=== PATIENT | female | born 1950 | race Two or more races ===

== ENCOUNTER 2018-03-11 11:01 | Outpatient (RCR) | payer MEDICARE, OTHER ==
[2018-03-11] MEDS ORDERED: SIMVASTATIN10 MG ORAL (13:11)
[2018-03-11] MEDS ORDERED: GLIPIZIDE5 MG ORAL (13:11)
[2018-03-11] MEDS ORDERED: ACARBOSE50 MG ORAL (13:11)
[2018-03-11] MEDS ORDERED: FOSAMAX70 MG ORAL (13:11)
[2018-03-11] MEDS ORDERED: JANUVIA25 MG ORAL (13:11)
== END 2018-03-21 | disposition home or self-care (01) ==
LOC: WCC 11:01
DX: E11.52 Type 2 diabetes mellitus with diabetic peripheral angiopathy with gangrene (principal); L97.519 Non-pressure chronic ulcer of other part of right foot with unspecified severity; E11.621 Type 2 diabetes mellitus with foot ulcer; L03.115 Cellulitis of right lower limb
CPT/HCPCS: G0463

== ENCOUNTER 2018-03-11 12:57 | Emergency (ER) | payer MEDICARE, MEDICAID ==
[~2018-03-11] VITALS: Ht 162.6 cm; Wt 61.7 kg
[2018-03-11 13:10] VITALS: BP 140/61
--- NOTE | 2018-03-11 13:10 | NUR ---
ED Nurse Note: PT WALKED IN TO ER TODAY FROM HOME. AOX4. PT C/O RIGHT FOOT PAIN, 10/10 FROM WHAT SHE BELIEVES IS AN INFECTION. PT'S SON AT BEDSIDE STATES WOUND CARE PHYSICIAN REFERRED HER TO ER FOR IV ABX THERAPY. PT PRESENTS WITH SLIGHT SWELLING OF RIGHT FOOT WITH 3 SITES OF NECROTIC TISSUE - ONE AROUND BASE OF SECOND TOE, TWO ON DORSAL SURFACE OF FOOT. SENSATION INTACT, CAP REFILL <3 SECONDS, MUSCLE STRENGTH 5/5 AND FULL ROM OF EXTREMITY AND TOES.
[2018-03-11] MEDS ORDERED: JANUVIA25 MG ORAL (13:11)
[2018-03-11] MEDS ORDERED: ACARBOSE50 MG ORAL (13:11)
[2018-03-11] MEDS ORDERED: FOSAMAX70 MG ORAL (13:11)
[2018-03-11] MEDS ORDERED: SIMVASTATIN10 MG ORAL (13:11)
[2018-03-11] MEDS ORDERED: GLIPIZIDE5 MG ORAL (13:11)
[2018-03-11] MEDS ORDERED: cefTRIAXone 1 GM in NS 55 ML IVPB ONE (13:15)
[2018-03-11] MEDS ORDERED: Vancomycin 1 GM in NS 275 ML IVPB ONE (13:15)
[2018-03-11 13:52] LABS: BASOPHILS % (AUTO) 0.6 % (0.0-2.0); EOSINOPHILS % (AUTO) 0.4 % (0.0-3.0); HEMOGLOBIN 12.6 G/DL (12.0-16.0); LYMPHOCYTES % (AUTO) 18.7 % (20.0-45.0); MEAN CORPUSCULAR VOLUME 88 FL (80-99); MONOCYTES % (AUTO) 6.8 % (1.0-10.0); NEUTROPHILS % (AUTO) 73.5 % (45.0-75.0); PLATELET COUNT 247 K/UL (150-450); RED BLOOD COUNT 4.18 M/UL (4.20-5.40); RED CELL DISTRIBUTION WIDTH 10.5 % (11.6-14.8)
[2018-03-11 14:24] LABS: ANION GAP 11 mmol/L (5-15); BLOOD UREA NITROGEN 16 mg/dL (7-18); CALCIUM 9.6 MG/DL (8.5-10.1); CARBON DIOXIDE 27 MMOL/L (21-32); CHLORIDE 97 MMOL/L (98-107); CREATININE 0.9 MG/DL (0.55-1.30); POTASSIUM 3.5 MMOL/L (3.5-5.1); SODIUM 135 MMOL/L (136-145)
--- NOTE | 2018-03-11 14:25 | Emergency Room Report ---
History of Present Illness General Chief Complaint: General Complaint Source: Patient, Family Member Present Illness HPI Patient had visited the wound clinic across the street after being seen there patient was sent to the emergency room for further evaluation patient reports ongoing redness and infection to her right foot Patient is a diabetic Reports that the area has become more red in the recent past several days denies any fevers or chills denies any chest pain denies any vomiting denies any recent trauma Denies any discharge Allergies: Coded Allergies: No Known Allergies (Unverified , 03/11/18) Patient History Past Medical History: see triage record Pertinent Family History: none Last Menstrual Period: menopause Reviewed Nursing Documentation: PMH: Agreed; PSxH: Agreed Nursing Documentation-PMH Past Medical History: No History, Except For Hx Cardiac Problems: No - high cholesterol Hx Diabetes: Yes Review of Systems All Other Systems: negative except mentioned in HPI Physical Exam Vital Signs Date Time Temp Pulse Resp B/P (MAP) Pulse Ox O2 Delivery O2 Flow Rate FiO2 03/11/18 13:05 97.9 80 18 139/59 100 Room Air Sp02 EP Interpretation: reviewed, normal General Appearance: well appearing, no apparent distress Head: normocephalic, atraumatic Eyes: bilateral eye PERRL, bilateral eye EOMI ENT: hearing grossly normal, normal pharynx Neck: supple Respiratory: lungs clear Cardiovascular #1: regular rate, rhythm Gastrointestinal: non tender, soft Musculoskeletal: other - Venous stasis ulcers right foot erythema patient has sensory intact and is able to flex at the ankle, Neurologic: alert, oriented x3, responsive Skin: normal color, no rash, other - Ulcerations erythema, right foot multiple areas Lymphatic: no adenopathy Medical Decision Making Diagnostic Impression: Primary Impression: Cellulitis in diabetic foot ER Course Patient was seen at the wound care in the area was concerning to the specialist at the facility Patient is a diabetic with multiple risk factors area appears erythematous infected patient initiated on antibiotics Request for admission was made given the patient's Insurance request patient was requested for transfer stable to do so for further evaluation Labs Test 03/11/18 13:30 White Blood Count 8.0 K/UL (4.8-10.8) Red Blood Count 4.18 M/UL (4.20-5.40) Hemoglobin 12.6 G/DL (12.0-16.0) Hematocrit 37.0 % (37.0-47.0) Mean Corpuscular Volume 88 FL (80-99) Mean Corpuscular Hemoglobin 30.0 PG (27.0-31.0) Mean Corpuscular Hemoglobin Concent 33.9 G/DL (32.0-36.0) Red Cell Distribution Width 10.5 % (11.6-14.8) Platelet Count 247 K/UL (150-450) Mean Platelet Volume 7.5 FL (6.5-10.1) Neutrophils (%) (Auto) 73.5 % (45.0-75.0) Lymphocytes (%) (Auto) 18.7 % (20.0-45.0) Monocytes (%) (Auto) 6.8 % (1.0-10.0) Eosinophils (%) (Auto) 0.4 % (0.0-3.0) Basophils (%) (Auto) 0.6 % (0.0-2.0) Sodium Level 135 MMOL/L (136-145) Potassium Level 3.5 MMOL/L (3.5-5.1) Chloride Level 97 MMOL/L (98-107) Carbon Dioxide Level 27 MMOL/L (21-32) Anion Gap 11 mmol/L (5-15) Blood Urea Nitrogen 16 mg/dL (7-18) Creatinine 0.9 MG/DL (0.55-1.30) Estimat Glomerular Filtration Rate > 60 mL/min (>60) Glucose Level 256 MG/DL (74-106) Lactic Acid Level 1.70 mmol/L (0.4-2.0) Calcium Level 9.6 MG/DL (8.5-10.1) Total Bilirubin 0.7 MG/DL (0.2-1.0) Aspartate Amino Transf (AST/SGOT) 26 U/L (15-37) Alanine Aminotransferase (ALT/SGPT) 25 U/L (12-78) Alkaline Phosphatase 84 U/L (46-116) Creatine Kinase MB 0.9 NG/ML (0.0-3.6) Total Protein 8.5 G/DL (6.4-8.2) Albumin 3.4 G/DL (3.4-5.0) Globulin 5.1 g/dL Albumin/Globulin Ratio 0.7 (1.0-2.7) Last Vital Signs Date Time Temp Pulse Resp B/P (MAP) Pulse Ox O2 Delivery O2 Flow Rate FiO2 03/11/18 13:10 78 20 Room Air 03/11/18 13:10 98.2 140/61 100 Status: improved Disposition: XFER [facility] HOSP Condition: Serious Referrals: NON PHYSICIAN (PCP) Silvio Cage DO Mar 11, 2018 14:25
[2018-03-11 14:28] LABS: ALANINE AMINOTRANSFERASE 25 U/L (12-78); ALBUMIN 3.4 G/DL (3.4-5.0); ALBUMIN/GLOBULIN RATIO 0.7 (1.0-2.7); ALKALINE PHOSPHATASE 84 U/L (46-116); ASPARTATE AMINO TRANSFERASE 26 U/L (15-37); BILIRUBIN,TOTAL 0.7 MG/DL (0.2-1.0); CKMB 0.9 NG/ML (0.0-3.6)
[2018-03-11 15:11] VITALS: BP 134/58
[2018-03-11 15:34] VITALS: BP 132/62
--- NOTE | 2018-03-11 15:34 | NUR ---
ED Nurse Note: NURSE AT [facility] CALLED FOR REPORT. REPORT GIVEN TO YOUNG JONES. [facility] READY TO ACCEPT PT AND NOTIFIED THAT ETA FOR AMBULIFE TO [facility] IS 1630.
== END 2018-03-11 15:34 | disposition short-term general hospital (02) ==
LOC: EMR 13:50
DX: L03.115 Cellulitis of right lower limb (principal); E11.621 Type 2 diabetes mellitus with foot ulcer; L97.519 Non-pressure chronic ulcer of other part of right foot with unspecified severity
CPT/HCPCS: 36415; 80053; 82553; 83605; 85025; 87040; 96365; 96368; 99285; G0463; J0696; J3370; J7050